=== PATIENT | female | born 1965 | race Caucasian/White ===

== ENCOUNTER 2019-01-24 12:28 | Emergency (ER) | payer OTHER ==
[~2019-01-24] VITALS: Ht 162.6 cm; Wt 99.8 kg
[2019-01-24 12:39] VITALS: BP 157/86
[2019-01-24 13:05] VITALS: BP 157/86
--- NOTE | 2019-01-24 13:05 | ER.PDOC ---
General Chief Complaint: Requesting Medical Care Stated Complaint: N/V WEAKNESS/HEADACHE Time seen by MD: 12:57 Source: patient Exam Limitations: no limitations History of Present Illness Initial Comments Pt recently diagnosed with AF, reverted now, started with headache this morning, then developed a sensation of warmth about the chest and left arm, nausea that is gone now and 1 episode of vomiting, anxiety Timing/Duration: 1-3 hours Severity/Quality: mild Activities at Onset: none Prior CP/Workup: No Prior Chest Pain Nitro Today/Relief: No Nitro Taken Today Aspirin Today: No Aspirin Today Cardiovascular: see HPI Psychiatric/Neurological: headache All Other Systems: Reviewed and Negative Physical Exam General Appearance: No Apparent Distress, WD/WN HEENT: PERRL/EOMI, Normal ENT Inspection, TMs Normal, Pharynx Normal Neck: Non-Tender, Full Range of Motion, Supple, Normal Inspection, Tender Lateral (right, on the side where her headache is) Respiratory: chest non-tender, lungs clear, normal breath sounds, no respiratory distress, no accessory muscle use Cardiovascular: Normal Peripheral Pulses, Regular Rate, Rhythm, No Edema, No Gallop, No JVD, No Murmur Gastrointestinal: Normal Bowel Sounds, No Organomegaly, No Pulsatile Mass, Non Tender, Soft Extremities: Normal Range of Motion, Non-Tender, Normal Inspection, No Pedal Edema, No Calf Tenderness, Normal Capillary Refill Neurologic/Psychiatric: sheriffs officer II-XII NML as Tested, No Motor/Sensory Deficits, Alert, Normal Mood/Affect, Oriented x 3 Skin: Normal Color, Warm/Dry Lymphatic: No Adenopathy Results/Orders Results/Orders Orders - ANTONELLA FERMIN MD Cbc With Auto Diff (01/24/19 12:59) Comprehensive Metabolic Panel (01/24/19 12:59) Creatine Kinase (01/24/19 12:59) Creatine Kinase Mb (01/24/19 12:59) Troponin I (01/24/19 12:59) Probnp B-Type Maintenance Department Technician (01/24/19 12:59) PT (01/24/19 12:59) Partial Thromboplastin Time. (01/24/19 12:59) Xr Chest 1v (01/24/19 12:59) Ekg-Routine (01/24/19 12:59) Departure Time of Disposition: 14:13 Disposition: 01 HOME, SELF-CARE Impression: Primary Impression: Headache Condition: Stable Patient Instructions: Epidural Blood Patching in Spinal Headache Referrals: PCP,UNKNOWN (PCP) PRIMARY CARE PROVIDER Duration or Time Spent with Pa: 25 ANTONELLA FERMIN MD Jan 24, 2019 13:05
[2019-01-24 13:09] LABS: BASOPHIL % 0.4 % (0.0-0.2); EOSINOPHIL % 0.5 % (0.0-5.0); HEMOGLOBIN 11.7 g/dL (12.0-15.0); LYMPHOCYTES # 1.8 10^3/uL (1.0-4.8); LYMPHOCYTES % 22.5 % (24.0-44.0); MEAN CELL HGB 31.1 pg (26-34); MEAN CELL HGB CONCENTRATION 33.7 g/dL (33-37); MEAN CORP VOLUME 92.3 fL (78-100); MEAN PLATELET VOLUME 9.2 fL (7.8-11.0); MONOCYTES # 0.5 10^3/uL (0.3-0.8); MONOCYTES % 6.9 % (5.0-12.0); NEUTROPHIL # 5.5 10^3/uL (1.8-7.7); NEUTROPHILS % 69.4 % (41.0-85.0); RED CELL DISTRIBUTION WIDTH 14.8 % (11.5-14.5); WHITE BLOOD CELL 7.9 10^3/uL (4.5-11.0)
--- NOTE | 2019-01-24 13:09 | PCM.EKG ---
[facility] Test Date: 2019-01-24 Test Time: 13:07:17 Pat Name: SPENCER WILSON Department: Patient ID: [id number] Room: Gender: F Picture Painter: TB : 1965 Requested By: ANTONELLA STILES Order Number: [id number] Reading MD: Antonella Stiles Measurements Intervals [place] Rate: 54 P: 58 ND: 176 QRS: 8 QRSD: 103 T: 20 QT: 450 QTc: 427 Interpretive Statements Sinus rhythm Abnormal T, consider ischemia, anterior leads No previous ECG available for comparison Electronically Signed On 01-24-2019 23:46:37 PAPERHANGER ASSISTANT by Antonella Stiles Please click the below link to view image of tracing.
--- NOTE | 2019-01-24 13:33 | DIREP ---
PROCEDURE:CHEST 1 VIEW COMPARISON:None. INDICATIONS:CP FINDINGS: LUNGS/PLEURA:Low lung volumes. No suspicious airspace consolidation, pleural effusion or pneumothorax is identified. VASCULATURE:Normal. Unremarkable pulmonary vasculature. CARDIAC:Normal. No cardiac silhouette abnormality or cardiomegaly. MEDIASTINUM:Normal. No visible mass or adenopathy. BONES:No acute abnormality. OTHER:Surgical clips within the axillary regions bilaterally. Cardiac loop recorder noted. Presumed ASD closure device. CONCLUSION:No acute cardiopulmonary abnormality. Dictated by: Mitchell Miller M.D. on 01/24/2019 at 01:29 PM
[2019-01-24 13:39] LABS: ALANINE AMINOTRANSFERASE(ML) 26 U/L (12-78); ALKALINE PHOSPHATASE 82 U/L (50-136); ASPARTATE AMINO TRANSFERASE 14 U/L (0-35); CALCIUM 8.6 mg/dL (8.4-10.5); GLUCOSE 114 mg/dL (70-110)
[2019-01-24] MEDS ORDERED: TYLENOL PO STA (14:02)
[2019-01-24] MEDS ORDERED: TYLENOL PO ONE (14:05)
[2019-01-24] MEDS ORDERED: ZOFRAN ODT ONE (14:08)
[2019-01-24 14:33] VITALS: BP 135/70
== END 2019-01-24 14:33 | disposition home or self-care (01) ==
LOC: ER 12:28
DX: F41.9 Anxiety disorder, unspecified (principal)
CPT/HCPCS: 36415; 71045; 80053; 82550; 82553; 83880; 84484; 85025; 85610; 85730; 93005; 99285; A9150; Q0162